=== PATIENT | male | born 1950 | race Caucasian/White ===

== ENCOUNTER 2024-07-01 12:43 | Outpatient (CLI) | payer OTHER | END 2024-07-01 12:48 | disposition home or self-care (01) | LOC: SONOGRAMA 12:43 | DX: N42.30 Unspecified dysplasia of prostate (principal) ==

== ENCOUNTER 2024-07-05 07:33 | Outpatient (CLI) | payer OTHER | END 2024-07-05 07:48 | disposition home or self-care (01) | LOC: TOM 07:33 | PROVIDERS: ATTEND Internal Medicine Gastroenterology | DX: R10.32 Left lower quadrant pain (principal); K40.90 Unilateral inguinal hernia, without obstruction or gangrene, not specified as recurrent ==